=== PATIENT | female | born 1960 | race Two or more races ===

== ENCOUNTER 2022-10-23 08:57 | Outpatient (CLI) | payer OTHER | END 2022-10-23 09:07 | disposition home or self-care (01) | LOC: TOM 08:57 | PROVIDERS: ATTEND Internal Medicine | DX: K56.5 Intestinal adhesions [bands] with obstruction (postinfection) (principal); Z12.11 Encounter for screening for malignant neoplasm of colon; Z80.0 Family history of malignant neoplasm of digestive organs ==